=== PATIENT | female | born 1940 | race Caucasian/White ===

== ENCOUNTER 2016-10-16 13:34 | Inpatient (IN) | payer BC ==
[~2016-10-16] VITALS: Ht 162.6 cm; Wt 84.8 kg
[~2016-10-16 13:34] MED LIST: METFORMIN
[2016-10-16] MEDS ORDERED: SODIUM CHLORIDE 0.9% 1,000 ML IV ONE (14:15)
[2016-10-16] MEDS ORDERED: HYDROCODONE/ACETAMINOPHEN 5/325MG TABLET PO ONE (14:30)
[2016-10-16 14:45] LABS: BASOPHILS % 0.3 % (0.0-2.0); HEMATOCRIT. 48.6 % (36.0-48.0); HEMOGLOBIN. 15.9 g/dL (12.0-16.0); LYMPHOCYTES % 7.1 % (20.0-50.0); MEAN CORPUSCULAR HEMOGLOBIN 28.4 pg (28.0-32.0); MEAN CORPUSCULAR HGB CONC 32.8 g/dL (31.0-37.0); MEAN CORPUSCULAR VOLUME 86.5 fL (81.0-99.0); MEAN PLATELET VOLUME 8.3 fl (7.4-10.4); MONOCYTES % 4.6 % (2.0-8.0); PLATELET 360 x1000/uL (130-400); RED BLOOD CELL COUNT 5.61 mill/uL (4.2-5.4); RED CELL DISTRIBUTION WIDTH 14.8 % (11.6-14.6); WHITE BLOOD COUNT 19.1 x1000/uL (4.5-11.0)
[2016-10-16 14:53] LABS: CHLORIDE 98 mEq/L (98-107); INDEX HEMOLYSI 1 (1-3); INDEX ICTERIC 1 (1-4); INDEX LIPEMIC 1 (1-3); INR 1.2; PARTIAL THROMBOPLASTIN TIME 27.9 sec (24.0-34.0); PROTHROMBIN TIME 12.1 sec
[2016-10-16 14:56] LABS: ANION GAP 16; CALCIUM 9.1 mg/dL (8.5-10.1); CARBON DIOXIDE 27 mEq/L (21-32); UREA NITROGEN BLOOD 17 mg/dL (7-21)
[2016-10-16 14:58] LABS: ALANINE AMINOTRANSFERASE 56 IU/L (13-61); eGFR > 60 mL/min (>60)
[2016-10-16] MEDS ORDERED: LEVOFLOXACIN 750MG PREMIX 150 ML IV ONE (15:00)
[2016-10-16] MEDS ORDERED: SODIUM CHLORIDE 0.9% 1000ML BAG (SEPSIS BOLUS) IV ONE (15:00)
[2016-10-16 15:01] LABS: TROPONIN I 0.15 ng/mL (0.00-0.04)
[2016-10-16 15:25] LABS: LACTIC ACID 2.3 mmol/L (0.4-2.0)
[2016-10-16] MEDS ORDERED: ASPIRIN 81MG TABLET PO ONE (16:15)
[2016-10-16 18:00] LABS: GLUCOSE URINE 3+ (NEGATIVE); KETONES URINE 1+ (NEGATIVE); LEUKOCYTE ESTERASE URINE 2+ (NEGATIVE); NITRITE URINE NEGATIVE (NEGATIVE); OCCULT BLOOD URINE 2+ (NEGATIVE); PROTEIN URINE 1+ (NEGATIVE); SPECIFIC GRAVITY URINE 1.022 (1.005-1.030)
[2016-10-16 18:01] LABS: CLARITY URINE CLOUDY (CLEAR); COLOR URINE YELLOW (YELLOW)
[2016-10-16 18:52] LABS: WBC URINE 25-50 /hpf (0-2)
[2016-10-16 18:53] LABS: BACTERIA URINE 4+; SQUAMOUS EPITHELIAL CELL URINE NONE SEEN /lpf (RARE/1+)
[2016-10-16 22:10] VITALS: BP 142/82
[2016-10-16 22:30] VITALS: BP 142/82
[2016-10-16] MEDS ORDERED: POTASSIUM CHLORIDE 20MEQ TABLET SR PO NR (23:30)
[2016-10-16] MEDS ORDERED: HYDROCODONE/ACETAMINOPHEN 5/325MG TABLET PO PRN (23:30)
[2016-10-16] MEDS ORDERED: CEFTRIAXONE 2 G PREMIX 50 ML IV SCH (23:30)
[2016-10-16] MEDS ORDERED: CLONIDINE 0.1MG TABLET PO PRN (23:30)
[2016-10-16] MEDS ORDERED: KETOROLAC 15MG/ML VIAL IV PRN (23:30)
[2016-10-16] MEDS ORDERED: IPRATROPIUM/ALBUTEROL 0.5-3(2.5)MG/3ML NEB HHN PRN (23:30)
[2016-10-17] VITALS: BP 107/60
[2016-10-17] MEDS ORDERED: DEXTROSE 50% WATER 50ML SYRINGE IV PRN (01:30)
[2016-10-17] MEDS ORDERED: CEFTRIAXONE 2 G in DEXTROSE 5% WATER 50 ML IV SCH (02:00)
[2016-10-17 04:00] VITALS: BP 148/89
[2016-10-17] MEDS: BLOOD SUGAR DIAGNOSTIC STRIP TEST SCH ×3 (06:17→17:49)
[2016-10-17 06:44] LABS: BASOPHILS % 0.6 % (0.0-2.0); EOSINOPHILS % 1.2 % (0.0-5.0); HEMATOCRIT. 44.7 % (36.0-48.0); HEMOGLOBIN. 14.9 g/dL (12.0-16.0); MEAN CORPUSCULAR HEMOGLOBIN 28.6 pg (28.0-32.0); MEAN CORPUSCULAR HGB CONC 33.3 g/dL (31.0-37.0); MEAN CORPUSCULAR VOLUME 86.1 fL (81.0-99.0); MEAN PLATELET VOLUME 8.6 fl (7.4-10.4); MONOCYTES % 6.5 % (2.0-8.0); NEUTROPHILS % 77.7 % (40.0-76.0); PLATELET 351 x1000/uL (130-400); RED CELL DISTRIBUTION WIDTH 14.8 % (11.6-14.6); WHITE BLOOD COUNT 14.5 x1000/uL (4.5-11.0)
[2016-10-17 07:45] LABS: ANION GAP 13; CARBON DIOXIDE 29 mEq/L (21-32); CHLORIDE 99 mEq/L (98-107); INDEX HEMOLYSI 2 (1-3); INDEX ICTERIC 1 (1-4); INDEX LIPEMIC 1 (1-3); UREA NITROGEN BLOOD 18 mg/dL (7-21); eGFR > 60 mL/min (>60)
[2016-10-17 08:00] VITALS: BP 131/80
[2016-10-17] MEDS: INSULIN LISPRO 100 UNITS/ML SUBCUT SCH ×3 (08:24→17:44)
[2016-10-17] MEDS ORDERED: LISINOPRIL 10MG TABLET PO SCH (09:00)
[2016-10-17 11:28] LABS: CREATINE KINASE MB FRACTION 6.2 ng/mL (0.5-3.6); TROPONIN I 0.12 ng/mL (0.00-0.04)
[2016-10-17 12:00] VITALS: BP 138/82
[2016-10-17 16:00] VITALS: BP 186/105
[2016-10-17 17:45] VITALS: BP 105/81
== END 2016-10-17 17:50 | disposition short-term general hospital (02) | DRG 914 ==
LOC: ER 13:48 → 7WST 17:17
PROVIDERS: ADMIT Internal Medicine Pulmonary Disease; ATTEND Internal Medicine Pulmonary Disease
DX: S19.9XXA Unspecified injury of neck, initial encounter (principal); N39.0 Urinary tract infection, site not specified; I67.82 Cerebral ischemia; J84.9 Interstitial pulmonary disease, unspecified; M47.812 Spondylosis without myelopathy or radiculopathy, cervical region; B96.89 Other specified bacterial agents as the cause of diseases classified elsewhere; E11.9 Type 2 diabetes mellitus without complications; I11.9 Hypertensive heart disease without heart failure; M48.02 Spinal stenosis, cervical region; E66.01 Morbid (severe) obesity due to excess calories; E78.00 Pure hypercholesterolemia, unspecified; M19.019 Primary osteoarthritis, unspecified shoulder; R74.8 Abnormal levels of other serum enzymes; M75.31 Calcific tendinitis of right shoulder; W18.11XA Fall from or off toilet without subsequent striking against object, initial encounter; R26.2 Difficulty in walking, not elsewhere classified; Z95.0 Presence of cardiac pacemaker; Z68.32 Body mass index [BMI] 32.0-32.9, adult; Z91.81 History of falling; Z90.49 Acquired absence of other specified parts of digestive tract; Z79.84 Long term (current) use of oral hypoglycemic drugs; Z79.899 Other long term (current) drug therapy; Y93.89 Activity, other specified; Y92.89 Other specified places as the place of occurrence of the external cause; Y99.8 Other external cause status
CPT/HCPCS: 36415; 51702; 70450; 71010; 72070; 72100; 72125; 73030; 73502; 80048; 80053; 81001; 82085; 82550; 82553; 82962; 83605; 84484; 85025; 85610; 85730; 87040; 87077; 87086; 87186; 93005; 93306; 96361; 96365; 99291; J0696; J1815; J1956; J7030; J7040; J7060; A4315

== ENCOUNTER 2018-05-30 17:11 | Inpatient (IN) | payer BC ==
[~2018-05-30] VITALS: Ht 162.6 cm; Wt 85.8 kg
[2018-05-30] MEDS ORDERED: ONDANSETRON HCL 4MG/2ML INJ IV STA (17:46)
[2018-05-30] MEDS ORDERED: MORPHINE SULFATE 4 MG/ML CPJ (NOT FOR IM USE) IV STA (17:46)
[2018-05-30] MEDS ORDERED: BACITRACIN ZINC OINT UDPKT TOP ONE (18:00)
[2018-05-30] MEDS ORDERED: MORPHINE SULFATE 2 MG/ML CPJ (NOT FOR IM USE) IV NR (18:01)
[2018-05-30 19:34] LABS: CHLORIDE 97 mEq/L (98-107)
[2018-05-30 19:38] LABS: BASOPHILS % 0.9 % (0.0-2.0); EOSINOPHILS % 2.1 % (0.0-5.0); HEMATOCRIT. 40.9 % (36.0-48.0); HEMOGLOBIN. 13.4 g/dL (12.0-16.0); LYMPHOCYTES % 9.6 % (20.0-50.0); MEAN CORPUSCULAR HEMOGLOBIN 28.8 pg (28.0-32.0); MEAN CORPUSCULAR VOLUME 88.1 fL (81.0-99.0); MEAN PLATELET VOLUME 9.9 fl (7.4-10.4); MONOCYTES % 5.2 % (2.0-8.0); NEUTROPHILS % 82.2 % (40.0-76.0); PLATELET 296 x1000/uL (130-400); RED BLOOD CELL COUNT 4.64 mill/uL (4.2-5.4); RED CELL DISTRIBUTION WIDTH 15.9 % (11.6-14.6)
[2018-05-30 19:45] LABS: INR 1.1; PARTIAL THROMBOPLASTIN TIME 27.9 sec (23.4-31.0); PROTHROMBIN TIME 10.9 sec (9.1-11.1)
[2018-05-30] MEDS ORDERED: MORPHINE SULFATE 4 MG/ML CPJ (NOT FOR IM USE) IV ONE (20:00)
[2018-05-30] MEDS ORDERED: ONDANSETRON HCL 4MG/2ML INJ IV ONE (20:00)
[2018-05-30] MEDS ORDERED: KETOROLAC 15MG/ML VIAL IV ONE (20:00)
[2018-05-30] MEDS ORDERED: POTASSIUM CHLORIDE 20MEQ TABLET SR PO ONE (22:15)
[2018-05-30 22:32] LABS: CLARITY URINE CLEAR (CLEAR); COLOR URINE YELLOW (YELLOW); KETONES URINE NEGATIVE (NEGATIVE); LEUKOCYTE ESTERASE URINE 1+ (NEGATIVE); NITRITE URINE POSITIVE (NEGATIVE); OCCULT BLOOD URINE 1+ (NEGATIVE); PH URINE 5.5 (4.5-8.0); PROTEIN URINE TRACE (NEGATIVE); SPECIFIC GRAVITY URINE 1.015 (1.005-1.030); UROBILINOGEN URINE 0.2 E.U./dL (0.2-1.0)
[2018-05-30 22:45] VITALS: BP 146/66
[2018-05-30 23:00] VITALS: BP 146/66
[2018-05-30] MEDS ORDERED: HYDROMORPHONE HCL/PF 2MG/ML CPJ IV PRN ×2 (23:45)
[2018-05-30] MEDS ORDERED: ONDANSETRON HCL 4MG/2ML INJ IV PRN (23:45)
[2018-05-31] VITALS: BP 120/80
[2018-05-31] MEDS ORDERED: DEXTROSE 50% WATER 50ML SYRINGE IV PRN
[2018-05-31 04:00] VITALS: BP 131/74
[2018-05-31] MEDS: INSULIN LISPRO 100 UNITS/ML SUBCUT SCH ×2 (06:43→12:38)
[2018-05-31] MEDS: BLOOD SUGAR DIAGNOSTIC STRIP TEST SCH ×2 (06:43→12:39)
[2018-05-31 07:12] LABS: BASOPHILS % 0.4 % (0.0-2.0); EOSINOPHILS % 0.4 % (0.0-5.0); HEMATOCRIT. 39.1 % (36.0-48.0); HEMOGLOBIN. 12.7 g/dL (12.0-16.0); LYMPHOCYTES % 12.1 % (20.0-50.0); MEAN CORPUSCULAR HEMOGLOBIN 28.5 pg (28.0-32.0); MEAN CORPUSCULAR VOLUME 87.9 fL (81.0-99.0); MEAN PLATELET VOLUME 9.1 fl (7.4-10.4); MONOCYTES % 7.4 % (2.0-8.0); NEUTROPHILS % 79.7 % (40.0-76.0); PLATELET 282 x1000/uL (130-400); RED BLOOD CELL COUNT 4.45 mill/uL (4.2-5.4); RED CELL DISTRIBUTION WIDTH 16.4 % (11.6-14.6)
[2018-05-31 07:39] LABS: CHLORIDE 100 mEq/L (98-107)
[2018-05-31 07:50] LABS: CREATINE KINASE 150 IU/L (26-192)
[2018-05-31 07:52] LABS: CREATINE KINASE MB FRACTION 3.2 ng/mL (0.5-3.6)
[2018-05-31 08:00] VITALS: BP 103/53
[2018-05-31] MEDS ORDERED: FAMOTIDINE 20MG/2ML VIAL IV SCH (09:00)
[2018-05-31 12:00] VITALS: BP 129/71
[2018-05-31] MEDS ORDERED: VANCOMYCIN 1 G PREMIX 200 ML IV SCH (12:15)
[2018-05-31] MEDS ORDERED: VANCOMYCIN 1250MG in DEXTROSE 5% WATER 250ML IV NR (13:30)
[2018-05-31] MEDS ORDERED: CEFEPIME 1,000 MG in DEXTROSE 5% WATER 50 ML IV SCH (13:30)
[2018-05-31 14:38] VITALS: BP 129/71
[2018-05-31 16:00] VITALS: BP 128/68
[2018-06-01] MEDS ORDERED: VANCOMYCIN 750 MG PREMIX 150 ML IV SCH (08:00)
== END 2018-05-31 16:00 | disposition short-term general hospital (02) | DRG 565 ==
LOC: ER 17:11 → 5WST 20:41 → EDBEDREQTM 20:46 → EDBEDREQ 20:46 → ENRESERV 21:20
PROVIDERS: ADMIT Internal Medicine Critical Care Medicine; ATTEND Internal Medicine Critical Care Medicine
DX: S02.82XA Fracture of other specified skull and facial bones, left side, initial encounter for closed fracture (principal); S42.351A Displaced comminuted fracture of shaft of humerus, right arm, initial encounter for closed fracture; E78.5 Hyperlipidemia, unspecified; M19.90 Unspecified osteoarthritis, unspecified site; I50.9 Heart failure, unspecified; I11.0 Hypertensive heart disease with heart failure; H53.2 Diplopia; E87.6 Hypokalemia; S02.5XXA Fracture of tooth (traumatic), initial encounter for closed fracture; R55 Syncope and collapse; M48.02 Spinal stenosis, cervical region; M47.812 Spondylosis without myelopathy or radiculopathy, cervical region; S00.81XA Abrasion of other part of head, initial encounter; E11.9 Type 2 diabetes mellitus without complications; Z96.612 Presence of left artificial shoulder joint; W18.30XA Fall on same level, unspecified, initial encounter; Y93.89 Activity, other specified; Z95.0 Presence of cardiac pacemaker; Z90.49 Acquired absence of other specified parts of digestive tract; Y92.89 Other specified places as the place of occurrence of the external cause; Y99.8 Other external cause status; Z88.7 Allergy status to serum and vaccine; Z88.0 Allergy status to penicillin
CPT/HCPCS: 36415; 70486; 71045; 73060; 80048; 82550; 82553; 82962; 83036; 83880; 84484; 93005; 96374; 96375; 96376; 99285; A4565; J0692; J1170; J1815; J1885; J2270; J2405; J3370; J3490; J7050; J7060